=== PATIENT | female | born 1950 | race Caucasian/White ===

== ENCOUNTER 2017-12-26 10:00 | Inpatient (IN) | payer OTHER ==
[~2017-12-26] VITALS: Ht 152.4 cm; Wt 64.0 kg
[2018-01-02] MEDS ORDERED: PERCOCET 5-3251 EACH PO (10:50)
[2018-01-02] MEDS ORDERED: INTESTINEX680 M1 PO (10:50)
[2018-01-02] MEDS ORDERED: OMEPRAZOLE20 MG PO (10:50)
[2018-01-02] MEDS ORDERED: POLY119PG PO ×2 (11:06→11:07)
== END 2018-01-02 13:13 | disposition home or self-care (01) | DRG 330 ==
LOC: SURG 12-30 05:34 → O/R 12-30 05:34 → SURG 12-30 10:00
PROVIDERS: Surgery
PROC: 07TC4ZZ Resection of Pelvis Lymphatic, Percutaneous Endoscopic Approach (ICD-10-PCS; 2017-12-30)
PROC: 30233N1 Transfusion of Nonautologous Red Blood Cells into Peripheral Vein, Percutaneous Approach (ICD-10-PCS; 2017-12-30)
PROC: 0DTF4ZZ Resection of Right Large Intestine, Percutaneous Endoscopic Approach (ICD-10-PCS; principal; 2017-12-30 11:30)
DX: C18.0 Malignant neoplasm of cecum (principal); D62 Acute posthemorrhagic anemia; R59.0 Localized enlarged lymph nodes

== ENCOUNTER 2018-03-03 07:30 | Day surgery (SDC) | payer OTHER ==
[~2018-03-03 07:30] MED LIST: INTESTINEX680 M1 PO; OMEPRAZOLE20 MG PO; PERCOCET 5-3251 EACH PO; POLY119PG PO
[2018-03-03] MEDS ORDERED: PERCOCET 5-3251 EACH PO (10:30)
== END 2018-03-03 12:45 | disposition home or self-care (01) ==
LOC: CIR.AMB 07:30
DX: C18.0 Malignant neoplasm of cecum (principal)
CPT/HCPCS: 36561; C1751

== ENCOUNTER 2022-07-02 11:29 | Day surgery (SDC) | payer OTHER ==
[~2022-07-02] VITALS: Ht 152.4 cm; Wt 68.5 kg
[2022-07-02] MEDS ORDERED: TRAM1TAB98 PO (13:17)
== END 2022-07-02 16:00 | disposition home or self-care (01) ==
LOC: CIR.AMB 11:29
PROVIDERS: ATTEND Surgery
DX: C18.0 Malignant neoplasm of cecum (principal); R59.0 Localized enlarged lymph nodes; D50.9 Iron deficiency anemia, unspecified; I10 Essential (primary) hypertension